=== PATIENT | male | born 1945 | race Caucasian/White ===

== ENCOUNTER 2016-05-18 18:29 | Emergency (ER) | payer MEDICARE, OTHER ==
--- NOTE | ~2016-05-18 | CT2 ---
[facility] A Service of [facility] RADIOLOGY TEXT RESULTS PATIENT: KATHIA LINARES LOCATION: [facility] : 41 UNIT #: [id number] AGE: [address]: Monika Silverio MD SEX: M ORDER DR: [id number] [facility]. [place], [place] [address] [id number] E MR#: [id number] Acc #: [id number] NAME: KATHIA LINARES : 1945 SEX: M STUDY DATE/TIME: 05/18/2016 19:32 UNIT: [facility] ROOM: STUDY DESCRIPTION: CT Abd and Pelv W Cont Attending Physician: Monika Silverio M.D. Ordering Physician: Monika Silverio M.D. Primary Care Physician: Randall Jara M.D. MEDICAL IMAGING REPORT This report is preliminary unless electronic signature is present EXAM CT of abdomen and pelvis. DATE OF EXAM 05/18/2016 INDICATIONS General burning for 2 days. Intermittent pain with urination. TECHNIQUE CT of the abdomen and pelvis utilizing 100 mL Isovue-370 IV contrast. Coronal and sagittal reconstructions were obtained. NOTE: This CT exam was performed with one or more of the following radiation dose reduction techniques: automatic exposure control, adjustment of mA and/or kV according to patient size, and iterative reconstruction. COMPARISON CT abdomen and pelvis 02/02/2013. FINDINGS The solid abdominal organs are unchanged. There are several small cysts in the kidneys. Gallbladder is not distended. Bowel is not dilated. There is an infrarenal abdominal aortic aneurysm measuring 3.7 cm. The appendix is surgically absent. PELVIS: No pelvic mass. The bladder is unremarkable. No enlarged pelvic or inguinal lymph nodes. No acute osseous abnormalities. There is a pin in the left proximal femur. IMPRESSION 1. No acute findings in the abdomen or pelvis. 2. 3.7 cm infrarenal abdominal aortic aneurysm. This is unchanged from [facility] A Service [facility] RADIOLOGY TEXT RESULTS PATIENT: KATHIA LINARES LOCATION: [place] : 41 UNIT #: [id number] AGE: [address]: Monika Silverio MD SEX: M ORDER DR: the 2012 comparison. Dictated by... Gallo Stone M.D. THIS IS AN ELECTRONICALLY VERIFIED REPORT Gallo Stone M.D. at 05/19/2016 3:18 PM TED/pamela TD: 05/18/2016 23:30 JOB #: [id number] MEDICAL IMAGING REPORT Page 1 of 1 COPY
[~2016-05-18 18:29] MED LIST: ALL DAY ALLERGY10 M3 PO; ALLER-TEC10 M1 PO; ALLERGY RELIEF10 M6 PO; AMLODIPINE BESYL5 MG PO; ANUSOL-HC CREAM30 G1 EXT; ASACOL400 MG PO; ASPIRIN EC81 M1; ASPIRIN EC81 M1 PO; ASPIRIN PO; ASPIRIN81 M2 PO; AZOR 5-20 MG T1 EACH PO; AZULFIDINE PO; CANASA1000 MG/SU PR; DARVOCET-N 1001 TA1 PO; DELZICOL400 M1 PO; DIAZEPAM PO; DIAZEPAM10 MG PO; DIAZEPAM2 MG PO; FLEXERIL PO; HYDROCODON-ACE1 EAC1 PO; HYDROCODONE-APA1 T54 PO; IMDUR PO; IMDUR-ER60 M1 PO; IMDUR-ER60 M2 DOB; IMDUR-ER60 M2 PO; LISINOPRIL PO; LOPID600 MG PO; LOPRESSOR PO; LORTAB 10-3251 EACH PO; LORTAB 10/500 T1 TAB PO; LORTAB 7.5-5001 TAB PO; NIACIN ER500 MG PO; NIACIN PO; NIACIN500 M1 PO; NIACIN500 M2 PO; NIASPAN PO; NITROGYLCERIN SUBLINGUAL; NORVASC PO; PHENERGAN25 M1 PO; PLAVIX PO; PRILOSEC PO; PRILOSEC20 MG DOB; PRILOSEC20 MG PO; TOPROL XL PO; TRICOR PO; TYLENOL EXT.STRENGTH PO; ZANTAC PO; ZYRTEC PO
[2016-05-18 18:39] LABS: BASOPHIL# 0.1 X10e3 (0-0.3); BASOPHIL% 0.8 % (0-2.5); EOSINOPHIL# 0.1 X10e3 (0-0.7); EOSINOPHIL% 1.6 % (0.0-7.0); HEMATOCRIT 42.2 % (38.0-50.0); LYMPHOCYTE# 1.5 X10e3 (1.0-3.5); LYMPHOCYTE% 24.2 % (17.0-45.0); MEAN CELL VOLUME 92.1 FL (83-96); MEAN CORPUSCULAR HEMOGLOBIN 30.6 PG (28-34); MEAN CORPUSCULAR HGB CONC 33.2 g/dL (30-36); MONOCYTE# 0.5 X10e3 (0-1.0); MONOCYTE% 7.9 % (3.0-12.0); NEUTROPHIL# 4.1 X10e3 (1.5-7.1); NEUTROPHIL% 65.5 % (40-75); PLATELET COUNT 223 X10e3 (140-420); RED BLOOD COUNT 4.58 X10e (3.90-5.60); RED CELL DISTRIBUTION WIDTH 13.5 % (11.0-15.5); WHITE BLOOD COUNT 6.3 X10e3 (4.0-10.5)
[2016-05-18 18:43] LABS: DIFF IND NO
[2016-05-18 19:05] LABS: ALBUMIN SERUM 4.2 g/dL (3.5-5.0); BILIRUBIN, DIRECT 0.1 mg/dL (0.0-0.2); BILIRUBIN,INDIRECT 0.6 mg/dL (0.0-0.9); BILIRUBIN,TOTAL 0.7 mg/dL (0.2-2.0); BUN/CREATININE RATIO 16.66; CALCIUM SERUM 8.9 mg/dL (8.4-10.2); CREATININE SERUM 0.9 mg/dL (0.6-1.4); PROTEIN TOTAL SERUM 7.4 g/dL (6.0-8.3)
[2016-05-18 19:17] LABS: URINE SOURCE CLEAN CATCH
[2016-05-18 19:41] LABS: URINE BILIRUBIN NEG (NEG); URINE BLOOD NEG (NEG); URINE COLOR YELLOW; URINE GLUCOSE NEG (NEG); URINE KETONE TRACE (NEG); URINE LEUKOCYTE ESTERASE NEG (NEG); URINE NITRATE NEG (NEG); URINE PH 5.5 (5-8); URINE PROTEIN NEG (NEG); URINE SPECIFIC GRAVITY 1.013 (1.003-1.035); URINE UROBILINOGEN 0.2 MG/DL (NEG)
[2016-05-18 19:44] LABS: CULTURE INDICATED? NO
[2016-11-06] MEDS ORDERED: AMLODIPINE BESYL5 MG PO (15:38)
[2016-11-06] MEDS ORDERED: LOPRESSOR PO (15:38)
[2016-11-06] MEDS ORDERED: ISOSORBIDE MONO60 M1 PO (15:39)
[2016-11-06] MEDS ORDERED: DELZICOL400 M2 PO (15:40)
[2016-11-06] MEDS ORDERED: DIAZEPAM PO (15:40)
[2016-11-06] MEDS ORDERED: LOPID600 MG PO (15:40)
[2016-11-06] MEDS ORDERED: PRILOSEC PO (15:40)
[2016-11-06] MEDS ORDERED: ASPIRIN EC81 M1 PO (15:41)
[2016-11-06] MEDS ORDERED: HYDROCODON-ACE1 EAC5 PO (15:41)
== END 2016-05-18 21:12 | disposition home or self-care (01) ==
LOC: CED 18:29
PROVIDERS: Emergency Medicine
DX: R10.2 Pelvic and perineal pain (principal); K21.9 Gastro-esophageal reflux disease without esophagitis; I10 Essential (primary) hypertension; Z90.49 Acquired absence of other specified parts of digestive tract; Z98.890 Other specified postprocedural states; Z86.79 Personal history of other diseases of the circulatory system
CPT/HCPCS: 36415; 74177; 80048; 80076; 81003; 85025; 99284; Q9967

== ENCOUNTER 2016-09-09 12:39 | Emergency (ER) | payer MEDICARE, OTHER ==
[~2016-09-09] VITALS: Ht 174 cm; Wt 70.3 kg
--- NOTE | ~2016-09-09 | CR72 ---
[facility] A Service of [facility] RADIOLOGY TEXT RESULTS PATIENT: KATHIA LINARES LOCATION: [facility] : [birth year] UNIT #: [id number] AGE: [address]: Adriel Combs MD SEX: M ORDER DR: [id number] [facility] [address] [place], [place] [address] [id number] E MR#: [id number] Acc #: [id number] NAME: KATHIA LINARES : 1945 SEX: M STUDY DATE/TIME: 09/09/2016 14:07 UNIT: [facility] ROOM: STUDY DESCRIPTION: CR Chest Single View Portable Attending Physician: Adriel Combs M.D. Ordering Physician: Adriel Combs M.D. Primary Care Physician: Randall Jara M.D. MEDICAL IMAGING REPORT This report is preliminary unless electronic signature is present EXAM Portable chest, 09/09/2016. HISTORY Short of air and chest pain since yesterday. COMPARISON 02/03/2016 FINDINGS A portable view of the chest was obtained. The heart size and vascularity are normal, and the lungs are clear. The bones are unremarkable. IMPRESSION No active disease. Dictated by... Manish Goodman M.D. THIS IS AN ELECTRONICALLY VERIFIED REPORT Manish Goodman M.D. at 09/10/2016 9:36 PM Jorge Luis TD: 09/10/2016 09:03 JOB #: [id number] MEDICAL IMAGING REPORT Page 1 of 1 COPY
--- NOTE | ~2016-09-09 | EKG ---
PATIENT: KATHIA LINARES UNIT #: [id number] Ventricular Rate: 78 BPM Atrial Rate: 78 BPM P-R Interval: 194 ms QRS Duration: 100 ms Q-T Interval: 386 ms QTC Calculation(Bezet): 440 ms P Clinton: 75 degrees Calculated R Clinton: -21 degrees Calculated T Clinton: 72 degrees Diagnosis Line: Normal sinus rhythm Diagnosis Line: Normal ECG Diagnosis Line: When compared with ECG of 03-FEB-2016 16:20, Diagnosis Line: No significant change was found Diagnosis Line: Confirmed by EBONY REESE MD ([id number]) on 09/13/2016 Diagnosis Line: 7:38:43 AM INTERPRETING MD: HUGH MCGRATH
[2016-09-09 14:22] LABS: BASOPHIL% 0.3 % (0-2.5); EOSINOPHIL# 0.1 X10e3 (0-0.7); EOSINOPHIL% 1.1 % (0.0-7.0); HEMOGLOBIN 14.1 gm/dL (13.0-16.0); LYMPHOCYTE# 1.1 X10e3 (1.0-3.5); LYMPHOCYTE% 16.1 % (17.0-45.0); MEAN CELL VOLUME 90.8 FL (83-96); MEAN CORPUSCULAR HEMOGLOBIN 31.1 PG (28-34); MEAN CORPUSCULAR HGB CONC 34.2 g/dL (30-36); MEAN PLATELET VOLUME 8.2 FL (6.5-11.5); MONOCYTE# 0.7 X10e3 (0-1.0); MONOCYTE% 9.9 % (3.0-12.0); NEUTROPHIL# 4.8 X10e3 (1.5-7.1); NEUTROPHIL% 72.6 % (40-75); PLATELET COUNT 231 X10e3 (140-420); RED BLOOD COUNT 4.52 X10e (3.90-5.60); RED CELL DISTRIBUTION WIDTH 13.3 % (11.0-15.5); WHITE BLOOD COUNT 6.6 X10e3 (4.0-10.5)
[2016-09-09 14:28] LABS: POC - CKMB <1.0 ng/mL (0.0-7.9); POC - TROPONIN <0.05 ng/mL (<=0.05)
[2016-09-09 14:29] LABS: DIFF IND NO
[2016-09-09 14:45] LABS: ALBUMIN SERUM 4.2 g/dL (3.5-5.0); BILIRUBIN, DIRECT 0.1 mg/dL (0.0-0.2); BILIRUBIN,INDIRECT 0.6 mg/dL (0.0-0.9); BILIRUBIN,TOTAL 0.7 mg/dL (0.2-2.0); CALCIUM SERUM 8.7 mg/dL (8.4-10.2); GLOM FILT RATE Estimated 74.3 mL/min (>60); POTASSIUM 4.3 mmol/L (3.5-5.1); PROTEIN TOTAL SERUM 7.4 g/dL (6.0-8.3)
[2016-09-09 16:10] LABS: POC - CKMB <1.0 ng/mL (0.0-7.9); POC - TROPONIN <0.05 ng/mL (<=0.05)
[2016-11-06] MEDS ORDERED: AMLODIPINE BESYL5 MG PO (15:38)
[2016-11-06] MEDS ORDERED: LOPRESSOR PO (15:38)
[2016-11-06] MEDS ORDERED: ISOSORBIDE MONO60 M1 PO (15:39)
[2016-11-06] MEDS ORDERED: DELZICOL400 M2 PO (15:40)
[2016-11-06] MEDS ORDERED: LOPID600 MG PO (15:40)
[2016-11-06] MEDS ORDERED: DIAZEPAM PO (15:40)
[2016-11-06] MEDS ORDERED: PRILOSEC PO (15:40)
[2016-11-06] MEDS ORDERED: HYDROCODON-ACE1 EAC5 PO (15:41)
[2016-11-06] MEDS ORDERED: ASPIRIN EC81 M1 PO (15:41)
== END 2016-09-09 16:30 | disposition home or self-care (01) ==
LOC: CED 12:39
PROVIDERS: Emergency Medicine
DX: R07.89 Other chest pain (principal); R05 Cough; I10 Essential (primary) hypertension; Z90.49 Acquired absence of other specified parts of digestive tract; Z88.8 Allergy status to other drugs, medicaments and biological substances
CPT/HCPCS: 36415; 71010; 80048; 80076; 82553; 84484; 85025; 93005; 99285